=== PATIENT | female | born 1965 | race Caucasian/White ===

== ENCOUNTER 2022-08-06 10:54 | Emergency (ER) | payer OTHER ==
[2022-08-06 11:26] VITALS: BP 131/74; PULSE 80; RESP 20; TEMP 98.2; BMI 32.9
[2022-08-06] MEDS ORDERED: LIDOCAINE 5% TOPICAL PATCH TP ONE (12:38)
[2022-08-06] MEDS ORDERED: ACETAMINOPHEN 325 MG TABLET (FP) PO ONE (12:38)
[2022-08-06] MEDS ORDERED: diazePAM 2 MG TABLET PO ONE (12:38)
[2022-08-06] MEDS ORDERED: LIDOCAINE 5% TOPICAL PATCH ONE (12:40)
[2022-08-06] MEDS ORDERED: ACETAMINOPHEN 325 MG TABLET (FP) ONE (12:41)
[2022-08-06] MEDS ORDERED: diazePAM 2 MG TABLET ONE (12:41)
[2022-08-06] MEDS ORDERED: LIDOCAINE PATCH REMOVAL MC SCH (22:00)
== END 2022-08-06 14:31 | disposition home or self-care (01) ==
LOC: JERFT 10:54
DX: M54.6 Pain in thoracic spine (principal)
CPT/HCPCS: 71101-TC-LT-FY; 99283-25

== ENCOUNTER 2023-04-05 04:08 | Day surgery (SDC) | payer OTHER ==
[2023-03-30 14:07] VITALS: BMI 34.2
[2023-04-05] MEDS ORDERED: MIDAZOLAM HCL 2 MG/2 ML SINGLE DOSE VIAL ONE (08:11)
[2023-04-05] MEDS ORDERED: PROPOFOL 20 ML ONE (08:24)
[2023-04-05 10:56] VITALS: RESP 20; TEMP 97.7
[2023-04-05 11:00] VITALS: BP 128/78; PULSE 79
== END 2023-04-05 10:46 | disposition home or self-care (01) ==
LOC: JASU-SURG 04:08
PROVIDERS: ATTEND Urology
PROC: 0TF3XZZ Fragmentation in Right Kidney Pelvis, External Approach (ICD-10-PCS; principal; 2023-04-05 08:27)
DX: N20.0 Calculus of kidney (principal)

== ENCOUNTER 2023-04-06 04:06 | Observation (INO) | payer OTHER ==
[2023-04-06] MEDS ORDERED: SODIUM CHLORIDE 0.9% 500 ML INFUS.BAG IV ONE (04:56)
[2023-04-06] MEDS ORDERED: ONDANSETRON 4 MG/2 ML VIAL IVPUSH ONE (04:56)
[2023-04-06] MEDS ORDERED: KETOROLAC TROMETHAMINE 15 MG/ML VIAL IVPUSH ONE (04:58)
[2023-04-06] MEDS ORDERED: ACETAMINOPHEN INJECTION 100 ML IVPB ONE (05:01)
[2023-04-06] MEDS ORDERED: ONDANSETRON 4 MG/2 ML VIAL ONE ×2 (05:01→19:48)
[2023-04-06] MEDS ORDERED: KETOROLAC TROMETHAMINE 30 MG/1 ML VIAL ONE ×2 (05:02→19:48)
[2023-04-06 05:31] LABS: EPI CELLS 24 /uL (0-25.1); HYALINE CASTS 1 /uL (0-3.1); PH,URINE 5.5 (5.0-8.0); URINE APPEARANCE CLEAR; URINE BACTERIA 5 /uL (0-1359); URINE BILIRUBIN NEGATIVE (NEGATIVE); URINE COLOR YELLOW; URINE GLUCOSE (UA) NEGATIVE (NEGATIVE); URINE KETONE NEGATIVE (NEGATIVE); URINE LEUK ESTERASE TRACE (NEGATIVE); URINE NITRITE NEGATIVE (NEGATIVE); URINE PROTEIN 1+ (NEGATIVE); URINE RBC 546 /uL (0-23.9); URINE UROBILINOGEN 0.2 mg/dL (0.2-1.0); URINE WBC 71 /uL (0-25.8)
[2023-04-06 06:35] LABS: BASO % 0.3 % (0-2.0); HEMATOCRIT 39.6 % (32.4-45.2); HEMOGLOBIN 12.8 GM/dL (10.7-15.3); LYMPH % 21.2 % (8-40); MCH 30.7 pg (25.7-33.7); MCHC 32.4 g/dl (32.0-36.0); MEAN PLT VOLUME 8.4 fl (7.5-11.1); MONO % 7.5 % (3.8-10.2); PLATELET COUNT 307 10^3/uL (134-434); RBC 4.17 M/mm3 (3.60-5.2); RDW 12.5 % (11.6-15.6); WHITE BLOOD COUNT 8.4 K/mm3 (4.0-10.0)
[2023-04-06 06:54] LABS: POTASSIUM 4.4 mmol/L (3.5-5.1)
[2023-04-06 06:55] LABS: CALCIUM 8.3 mg/dL (8.5-10.1)
[2023-04-06 06:56] LABS: ALBUMIN 3.5 g/dl (3.4-5.0); BLOOD UREA NITROGEN 7.2 mg/dL (7-18)
[2023-04-06 06:59] LABS: CREATININE 0.8 mg/dL (0.55-1.3)
[2023-04-06 07:01] LABS: BILIRUBIN,TOTAL 0.3 mg/dL (0.2-1); TOT PROT 6.2 g/dl (6.4-8.2)
[2023-04-06] MEDS ORDERED: ONDANSETRON 4 MG/2 ML VIAL IVPUSH PRN ×3 (10:27→20:45)
[2023-04-06] MEDS ORDERED: TAMSULOSIN HCL 0.4 MG CAP PO SCH (10:27)
[2023-04-06] MEDS ORDERED: LACTATED RINGERS SOLUTION 1,000 ML IV SCH ×2 (10:30→20:30)
[2023-04-06] MEDS ORDERED: TAMSULOSIN HCL 0.4 MG CAP ONE (10:53)
[2023-04-06] MEDS ORDERED: PANTOPRAZOLE SODIUM 40 MG/100 ML BAG IVPB ONE (10:53)
[2023-04-06] MEDS ORDERED: PANTOPRAZOLE SODIUM 40 MG VIAL IVPUSH ONE (11:00)
[2023-04-06] MEDS ORDERED: ACETAMINOPHEN 1000 MG/100 ML BAG IVPB PRN ×2 (12:14→20:45)
[2023-04-06] MEDS ORDERED: DEXTROSE 5%-LACTATED RINGERS 1,000 ML IV SCH ×2 (15:00→20:45)
[2023-04-06] MEDS ORDERED: IOHEXOL 300 MG/ML INFUS..BTL IV ONE ×2 (18:27→19:49)
[2023-04-06] MEDS ORDERED: ceFAZolin SODIUM 1 GM VIAL IVPB ONE (18:28)
[2023-04-06] MEDS ORDERED: LIDOCAINE HCL/PF 2% SDV 5ML VIAL ONE (19:34)
[2023-04-06] MEDS ORDERED: PROPOFOL 20 ML ONE (19:35)
[2023-04-06] MEDS ORDERED: MIDAZOLAM HCL 2 MG/2 ML SINGLE DOSE VIAL ONE (19:35)
[2023-04-06] MEDS ORDERED: DEXAMETHASONE SOD PHOSPHATE 4 MG/1 ML VIAL ONE (19:48)
[2023-04-06] MEDS ORDERED: ACETAMINOPHEN 1000 MG/100 ML BAG IVPB ONE (20:27)
[2023-04-06] MEDS ORDERED: PROMETHAZINE HCL 25 MG/1 ML VIAL IVPB PRN (20:27)
[2023-04-07 02:33] VITALS: BMI 34.9
[2023-04-07 07:47] LABS: BASO % 0.5 % (0-2.0); HEMATOCRIT 39.3 % (32.4-45.2); HEMOGLOBIN 13.1 GM/dL (10.7-15.3); LYMPH % 11.6 % (8-40); MCH 31.4 pg (25.7-33.7); MCHC 33.2 g/dl (32.0-36.0); MEAN CELL VOLUME 94.3 fl (80-96); MEAN PLT VOLUME 8.2 fl (7.5-11.1); MONO % 1.5 % (3.8-10.2); NEUT % 86.4 % (42.8-82.8); PLATELET COUNT 312 10^3/uL (134-434); RBC 4.17 M/mm3 (3.60-5.2); RDW 12.6 % (11.6-15.6); WHITE BLOOD COUNT 8.1 K/mm3 (4.0-10.0)
[2023-04-07 08:08] LABS: POTASSIUM 4.8 mmol/L (3.5-5.1)
[2023-04-07 08:13] LABS: ALBUMIN 3.1 g/dl (3.4-5.0); CALCIUM 9.1 mg/dL (8.5-10.1)
[2023-04-07 08:14] LABS: BLOOD UREA NITROGEN 8.1 mg/dL (7-18)
[2023-04-07 08:16] LABS: CREATININE 0.8 mg/dL (0.55-1.3)
[2023-04-07 08:17] LABS: TOT PROT 6.2 g/dl (6.4-8.2)
[2023-04-07 08:18] LABS: BILIRUBIN,TOTAL 0.5 mg/dL (0.2-1)
[2023-04-07 10:37] VITALS: BP 133/74; PULSE 71; RESP 16; TEMP 98.1
[2023-04-07] MEDS ORDERED: ACETAMINOPHEN 325 MG TABLET (FP) PO PRN (12:21)
[2023-04-07] MEDS ORDERED: traZODone HCL 50 MG TABLET (FP) PO SCH (22:00)
== END 2023-04-07 12:56 | disposition home or self-care (01) ==
LOC: JER 04:06 → JERBED 09:39 → UNDOADMOB 09:39 → INTOOBSV 09:39 → JERBED 16:02 → J8W 21:48
PROVIDERS: ADMIT Internal Medicine; ATTEND Nurse Practitioner Acute Care
PROC: 0T768DZ Dilation of Right Ureter with Intraluminal Device, Via Natural or Artificial Opening Endoscopic (ICD-10-PCS; principal; 2023-04-07)
PROC: 0TC68ZZ Extirpation of Matter from Right Ureter, Via Natural or Artificial Opening Endoscopic (ICD-10-PCS; 2023-04-07)
PROC: 3E033NZ Introduction of Analgesics, Hypnotics, Sedatives into Peripheral Vein, Percutaneous Approach (ICD-10-PCS; 2023-04-07)
PROC: 3E0333Z Introduction of Anti-inflammatory into Peripheral Vein, Percutaneous Approach (ICD-10-PCS; 2023-04-07)
PROC: 3E03329 Introduction of Other Anti-infective into Peripheral Vein, Percutaneous Approach (ICD-10-PCS; 2023-04-07)
PROC: 3E033GC Introduction of Other Therapeutic Substance into Peripheral Vein, Percutaneous Approach (ICD-10-PCS; 2023-04-07)
DX: N20.0 Calculus of kidney (principal); R10.31 Right lower quadrant pain; K29.70 Gastritis, unspecified, without bleeding; N39.9 Disorder of urinary system, unspecified; Z29.9 Encounter for prophylactic measures, unspecified
CPT/HCPCS: 36415; 74176-TC; 76000-TC-FY; 80053; 81003; 82360; 83735; 85025; 87086; 93005; 93010; 94760; 96374; 96375; 96376; 99285-25; C1758; C2617; G0378